=== PATIENT | female | born 1995 | race Caucasian/White ===

== ENCOUNTER 2019-01-03 10:44 | Outpatient (CLI) | payer BC ==
--- NOTE | 2019-01-03 13:04 | CT ---
CT PARANASAL SINUSES: 01/03/2019 HISTORY: Acute maxillary sinusitis. TECHNIQUE: Axial CT imaging at 2 mm intervals through the paranasal sinuses without contrast. Coronal and sagitt al reformatted imaging obtained. FINDINGS: The frontal sinuses are well aerated. There is minimal mucosal thickening involving the posterior eth moid air cells bilaterally. There is minimal mucosal thickening involving the pterygoid recess of the sphenoid sinus on the right. There is minimal polypoid mucosal thickening involving the ventral aspect of the left maxillary antru m and there is minimal mucosal thickening involving the alveolar recess of the right maxillary sinus. The mastoid air cells appear unremarkable bilaterally. No air-fluid levels are seen within the paranasal sinuses. No evidence for osseous dehiscence. No acu te osseous abnormality is noted. There is minimal nasal septal deviation with an osseous spur on the left. The maxillary ostium and in fundibulum is patent bilaterally. The middle meatus is clear bilaterally. The frontal sinus outflow t ract appears clear bilaterally. IMPRESSION: Minimal mucosal thickening. No air-fluid level or evidence of acute sinusitis. POS: [facility]
== END 2019-01-03 10:45 | disposition home or self-care (01) ==
LOC: TBSIIMAG 10:44
DX: J01.00 Acute maxillary sinusitis, unspecified (principal)